=== PATIENT | male | born 1990 | race Caucasian/White ===

== ENCOUNTER 2020-07-02 03:10 | Emergency (ER) | payer SELFPAY ==
[2020-07-02 03:57] LABS: Absolute Lymphocytes (CBC) 2.6 K/uL (0.7-4.9); Basophils % 0.6 % (0-1.3); Hematocrit 40.9 % (39.6-49.0); Lymphocytes % 24.4 % (15.3-44.8); MPV 8.9 fL (7.6-11.3); RBC Red Blood Cell Count 4.77 M/uL (4.33-5.43)
[2020-07-02] MEDS ORDERED: ONDANSETRON 4 MG/2 ML VIAL ONE (04:16)
[2020-07-02] MEDS ORDERED: NA CHLORIDE 0.9% 1,000 ML ONE (04:16)
[2020-07-02] MEDS ORDERED: FAMOTIDINE 20 MG/2 ML VIAL IV ONE (04:16)
[2020-07-02] MEDS ORDERED: MORPHINE 4 MG/ML SYR ONE ×2 (04:16→04:43)
[2020-07-02 04:19] LABS: ALT/SGPT 28 U/L (12-78); AST/SGOT 23 U/L (15-37); Albumin 3.9 g/dL (3.4-5.0); Alkaline Phosphatase 87 U/L (45-117); BUN Blood Urea Nitrogen 17 mg/dL (7-18); Bicarbonate 26 mmol/L (21-32); Bilirubin Direct < 0.1 mg/dL (0-0.2); Bilirubin Total 0.4 mg/dL (0.2-1.0); Glucose Level 115 mg/dL (74-106); Lipase 100 U/L (73-393); Potassium 3.6 mmol/L (3.5-5.1); Protein, Total 8.2 g/dL (6.4-8.2); Sodium Level 138 mmol/L (136-145)
[2020-07-02 06:10] LABS: Urine Blood TRACE (NEG); Urine Glucose NEGATIVE (NEG); Urine Protein NEGATIVE (NEG); Urine pH 5.5 (5.0-7.0)
--- NOTE | 2020-07-02 07:01 | ER ---
Nurse's Notes [facility] Name: Yovani Birch Age: 29 yrs Sex: Male : 1990 Arrival Date: 07/02/2020 Time: 03:11 Bed 8 Private MD: Diagnosis: Upper abdominal pain, unspecified Presentation: 07/02 03:34 Chief complaint: Patient states: Severe RUQ abdominal pain that woke patient from sleep lp1 a couple of hours ago; Denies N/V, diarrhea, fever. Coronavirus screen: Client denies travel out of the [place] in the last 14 days. At this time, the client does not indicate any symptoms associated with coronavirus-19. Ebola Screen: No symptoms or risks identified at this time. Initial Sepsis Screen: Does the patient meet any 2 criteria? No. Patient's initial sepsis screen is negative. Does the patient have a suspected source of infection? No. Patient's initial sepsis screen is negative. Risk Assessment: Do you want to hurt yourself or someone else? Patient reports no desire to harm self or others. Onset of symptoms was July 02, 2020. 03:34 Method Of Arrival: Wheelchair lp1 03:34 Acuity: CORBIN 3 lp1 Historical: - Allergies: 03:35 No Known Allergies; lp1 - Home Meds: 03:35 None [Active]; lp1 - PMHx: 03:35 None; lp1 - PSHx: 03:35 None; lp1 - Immunization history:: Adult Immunizations up to date. - Social history:: Smoking status: Patient reports the use of cigarette tobacco products, denies chronic smoking, but will smoke occasionally. Screenin:36 Abuse screen: Denies threats or abuse. Denies injuries from another. Nutritional lp1 screening: No deficits noted. Tuberculosis screening: No symptoms or risk factors identified. Fall Risk None identified. Assessment: 04:07 General: Appears uncomfortable, ill, Behavior is calm, cooperative. Pain: Complains of rv pain in right upper quadrant and left upper quadrant. Neuro: Level of Consciousness is awake, alert, obeys commands, Oriented to person, place, time, situation. Cardiovascular: Patient's skin is warm and dry. Respiratory: Airway is patent Respiratory effort is even, unlabored. GI: Bowel sounds present X 4 quads. Abd is soft X 4 quads. Derm: Skin is intact. 05:55 Reassessment: Patient and/or family updated on plan of care and expected duration. Pain ea level reassessed. Patient is alert, oriented x 3, equal unlabored respirations, skin warm/dry/pink. Patient states feeling better. 07:26 Reassessment: Patient appears in no apparent distress at this time. Patient and/or jd3 family updated on plan of care and expected duration. Pain level reassessed. Patient is alert, oriented x 3, equal unlabored respirations, skin warm/dry/pink. Patient states feeling better. Vital Signs: 03:34 BP 164 / 71; Pulse 73; Resp 20; Temp 98(TE); Pulse Ox 100% on R/A; Weight 136.08 kg lp1 (R); Height 5 ft. 9 in. (175.26 cm); Pain 10/10; 05:55 BP 139 / 85; Pulse 78; Resp 19; Pulse Ox 99% ; ea 06:14 Pain 0/10; rv 03:34 Body Mass Index 44.30 (136.08 kg, 175.26 cm) lp1 ED Course: 03:11 Patient arrived in ED. am2 03:35 Triage completed. lp1 03:35 Arm band placed on. lp1 03:42 Joon Pedroza, JASIEL is Primary Nurse. rv 03:43 Kristian Cabrera MD is Attending Physician. 7 03:47 Patient has correct armband on for positive identification. Placed in gown. Bed in low ea position. Call light in reach. Side rails up X 1. Pulse ox on. NIBP on. 03:49 Inserted saline lock: 20 gauge in right antecubital area, using aseptic technique. rv Blood collected. 03:49 Initial lab(s) drawn, by me, sent to lab. rv 05:58 CT Abd/Pelvis - IV Contrast Only In Process Unspecified. EDMS 07:25 No provider procedures requiring assistance completed. IV discontinued, intact, jd3 bleeding controlled, No redness/swelling at site. Pressure dressing applied. Administered Medications: 04:08 Drug: morphine 4 mg {Note: rass 0.} Route: IVP; Site: right antecubital; rv 06:14 Follow up: Response: No adverse reaction; RASS: Alert and Calm (0) rv 04:08 Drug: Zofran (Ondansetron) 4 mg Route: IVP; Site: right antecubital; rv 06:14 Follow up: Response: No adverse reaction rv 04:08 Drug: Pepcid 20 mg Route: IVP; Site: right antecubital; rv 06:14 Follow up: Response: No adverse reaction; RASS: Alert and Calm (0) rv 04:08 Drug: NS 0.9% 1000 ml Route: IV; Rate: 1000 ml; Site: right antecubital; rv 06:14 Follow up: IV Status: Completed infusion; IV Intake: 1000ml rv 04:32 Drug: morphine 4 mg Route: IVP; Site: right antecubital; ea 06:14 Follow up: Pain 0/10 Adult; Response: No adverse reaction; Marked relief of symptoms; rv Pain is decreased; RASS: Alert and Calm (0) Intake: 06:14 IV: 1000ml; Total: 1000ml. rv Outcome: 07:01 Discharge ordered by MD. oconnor 07:26 Discharged to home ambulatory, with family. jd3 07:26 Condition: stable 07:26 Discharge instructions given to patient, family, Instructed on discharge instructions, follow up and referral plans. medication usage, Demonstrated understanding of instructions, follow-up care, medications, Prescriptions given X 2. 07:26 Patient left the ED. jd3 Signatures: Dispatcher [employer] EDMS Melissa Knutson RN RN lp1 Mara Elliott Elena, RN RN ea Davies, Jonathon, RN RN jd3 Joon Pedroza RN RN rv Holmes, Maurice, MD MD mh7
--- NOTE | 2020-07-02 07:02 | EDPHYS ---
Physician Documentation [facility] Name: Yovani Birch Age: 29 yrs Sex: Male : 1990 Arrival Date: 07/02/2020 Time: 03:11 Bed 8 Private MD: ED Physician Kristian Cabrera HPI: 07/02 06:56 This 29 yrs old Male presents to ER via Wheelchair with complaints of mh7 Abdominal Pain. 06:56 The patient presents with abdominal pain in the upper abdomen. Onset: The mh7 symptoms/episode began/occurred this morning. The symptoms do not radiate. 06:57 Associated signs and symptoms: Pertinent negatives: nausea, vomiting, and diarrhea, mh7 anorexia, blood in stools, chest pain, constipation, diarrhea, dysuria, fever, headache, hematuria, nausea, palpitations, shortness of breath, testicular pain, vomiting, vomiting blood. The symptoms are described as intermittent, vague, waxing/waning. Modifying factors: The symptoms are alleviated by nothing, the symptoms are aggravated by nothing. Severity of pain: At its worst the pain was moderate today, in the emergency department the pain is unchanged. Historical: - Allergies: 03:35 No Known Allergies; lp1 - Home Meds: 03:35 None [Active]; lp1 - PMHx: 03:35 None; lp1 - PSHx: 03:35 None; lp1 - Immunization history:: Adult Immunizations up to date. - Social history:: Smoking status: Patient reports the use of cigarette tobacco products, denies chronic smoking, but will smoke occasionally. ROS: 06:57 Constitutional: Negative for fever, chills, and weight loss, Eyes: Negative for injury, mh7 pain, redness, and discharge, ENT: Negative for injury, pain, and discharge, Neck: Negative for injury, pain, and swelling, Cardiovascular: Negative for chest pain, palpitations, and edema, Respiratory: Negative for shortness of breath, cough, wheezing, and pleuritic chest pain, Back: Negative for injury and pain, : Negative for injury, bleeding, discharge, and swelling, MS/Extremity: Negative for injury and deformity, Skin: Negative for injury, rash, and discoloration, Neuro: Negative for headache, weakness, numbness, tingling, and seizure, Psych: Negative for depression, anxiety, suicide ideation, homicidal ideation, and hallucinations, Allergy/Immunology: Negative for hives, rash, and allergies, Endocrine: Negative for neck swelling, polydipsia, polyuria, polyphagia, and marked weight changes, Hematologic/Lymphatic: Negative for swollen nodes, abnormal bleeding, and unusual bruising. Exam: 06:57 Head/Face: Normocephalic, atraumatic. Eyes: Pupils equal round and reactive to light, mh7 extra-ocular motions intact. Lids and lashes normal. Conjunctiva and sclera are non-icteric and not injected. Cornea within normal limits. Periorbital areas with no swelling, redness, or edema. Neck: Trachea midline, no thyromegaly or masses palpated, and no cervical lymphadenopathy. Supple, full range of motion without nuchal rigidity, or vertebral point tenderness. No Meningismus. Chest/axilla: Normal chest wall appearance and motion. Nontender with no deformity. No lesions are appreciated. Cardiovascular: Regular rate and rhythm with a normal S1 and S2. No gallops, murmurs, or rubs. Normal PMI, no JVD. No pulse deficits. Respiratory: Lungs have equal breath sounds bilaterally, clear to auscultation and percussion. No rales, rhonchi or wheezes noted. No increased work of breathing, no retractions or nasal flaring. 06:57 Back: No spinal tenderness. No costovertebral tenderness. Full range of motion. Skin: Warm, dry with normal turgor. Normal color with no rashes, no lesions, and no evidence of cellulitis. MS/ Extremity: Pulses equal, no cyanosis. Neurovascular intact. Full, normal range of motion. Neuro: Awake and alert, GCS 15, oriented to person, place, time, and situation. Cranial nerves II-XII grossly intact. Motor strength 5/5 in all extremities. Sensory grossly intact. Cerebellar exam normal. Normal gait. Psych: Awake, alert, with orientation to person, place and time. Behavior, mood, and affect are within normal limits. 06:57 Constitutional: The patient appears in no acute distress, alert, awake, uncomfortable. 06:57 Abdomen/GI: Inspection: obese Bowel sounds: normal, Palpation: moderate abdominal tenderness, in the epigastric area, right upper quadrant and left upper quadrant, Rectal exam: the exam is deferred, because of patient request, Indicators: McBurney's point is not tender, Linares's sign is negative, Rovsing's sign is negative, Obturator sign is negative, Psoas sign is negative, Liver: no appreciated palpable abnormalities, Hernia: not appreciated. Vital Signs: 03:34 BP 164 / 71; Pulse 73; Resp 20; Temp 98(TE); Pulse Ox 100% on R/A; Weight 136.08 kg lp1 (R); Height 5 ft. 9 in. (175.26 cm); Pain 10/10; 05:55 BP 139 / 85; Pulse 78; Resp 19; Pulse Ox 99% ; ea 06:14 Pain 0/10; rv 03:34 Body Mass Index 44.30 (136.08 kg, 175.26 cm) lp1 MDM: 06:57 Differential diagnosis: appendicitis, bowel obstruction, cholecystitis, Cholelithiasis, mh7 diverticulitis, gastritis, gastroesophageal reflux disease, non-specific abd pain, pancreatitis, Peptic Ulcer Disease. Data reviewed: vital signs, nurses notes, lab test result(s), CBC, electrolytes, urinalysis, radiologic studies, CT scan. Data interpreted: Pulse oximetry: on room air is 99 %. Interpretation: normal. Counseling: I had a detailed discussion with the patient and/or guardian regarding: the historical points, exam findings, and any diagnostic results supporting the discharge/admit diagnosis, the presence of at least one elevated blood pressure reading (>120/80) during this emergency department visit, lab results, radiology results, the need for outpatient follow up, to return to the emergency department if symptoms worsen or persist or if there are any questions or concerns that arise at home. Response to treatment: the patient's symptoms have resolved after treatment, the patient's blood pressure is in an acceptable range, mental status has returned to baseline, the patient no longer shows bradycardia, the patient is not short of breath, the patient is not tachycardic, the patient's pain is gone, the patient's temperature has normalized. 07:01 Patient medically screened. [facility] 07/02 03:47 Order name: Basic Metabolic Panel; Complete Time: 04:26 07/02 03:47 Order name: CBC with Diff; Complete Time: 04:07/02 03:47 Order name: Hepatic Function; Complete Time: 04:07/02 03:47 Order name: Lipase; Complete Time: 04:26 ea 07/02 05:03 Order name: CT Abd/Pelvis - IV Contrast Only [facility] 07/02 06:00 Order name: Urine Dipstick--Ancillary (enter results); Complete Time: 06:14 sp 07/02 03:47 Order name: IV Saline Lock; Complete Time: 04:09 ea 07/02 03:47 Order name: Labs collected and sent; Complete Time: 04: ea 07/02 03:55 Order name: Urine Dipstick-Ancillary (obtain specimen); Complete Time: 06:14 [facility] Administered Medications: 04:08 Drug: morphine 4 mg {Note: rass 0.} Route: IVP; Site: right antecubital; rv 06:14 Follow up: Response: No adverse reaction; RASS: Alert and Calm (0) rv 04:08 Drug: Zofran (Ondansetron) 4 mg Route: IVP; Site: right antecubital; rv 06:14 Follow up: Response: No adverse reaction rv 04:08 Drug: Pepcid 20 mg Route: IVP; Site: right antecubital; rv 06:14 Follow up: Response: No adverse reaction; RASS: Alert and Calm (0) rv 04:08 Drug: NS 0.9% 1000 ml Route: IV; Rate: 1000 ml; Site: right antecubital; rv 06:14 Follow up: IV Status: Completed infusion; IV Intake: 1000ml rv 04:32 Drug: morphine 4 mg Route: IVP; Site: right antecubital; ea 06:14 Follow up: Pain 0/10 Adult; Response: No adverse reaction; Marked relief of symptoms; rv Pain is decreased; RASS: Alert and Calm (0) Disposition: 07/02/20 07:01 Discharged to Home. Impression: Upper abdominal pain, unspecified. - Condition is Stable. - Discharge Instructions: Abdominal Pain, Adult, [id number]. - Prescriptions for Bentyl 20 mg Oral Tablet - take 1 tablet by ORAL route every 6 hours As needed; 20 tablet. Pepcid 20 mg Oral Tablet - take 1 tablet by ORAL route every 12 hours for 5 days; 10 tablet. - Medication Reconciliation Form, Thank You Letter, Antibiotic Education, Prescription Opioid Use form. - Follow up: Private Physician; When: 1 - 2 days; Reason: If symptoms return, Worsening of condition, Recheck today's complaints, Continuance of care, Re-evaluation by your physician. - Problem is new. - Symptoms have improved. Signatures: Dispatcher [employer] EDMS Melissa Knutson, RN RN lp1 Christal Deng RN RN Scott Leonardo, RN RN jd3 Joon Pedroza RN RN Kristian Calvillo MD MD mh7 Corrections: (The following items were deleted from the chart) 07:26 07:01 07/02/2020 07:01 Discharged to Home. Impression: Upper abdominal pain, jd3 unspecified. Condition is Stable. Forms are Medication Reconciliation Form, Thank You Letter, Antibiotic Education, Prescription Opioid Use. Follow up: Private Physician; When: 1 - 2 days; Reason: If symptoms return, Worsening of condition, Recheck today's complaints, Continuance of care, Re-evaluation by your physician. Problem is new. Symptoms have improved. mh7
[2020-07-02 07:44] VITALS: TEMP 98
[2020-07-02 07:45] VITALS: BP 139/85; O2SAT 99
--- NOTE | 2020-07-02 18:27 | RAD REPORT ---
EXAM DESCRIPTION: CT ABDOMEN PELVIS WITH IV CONTRAST on 07/02/2020 5:03 AM CREDIT RISK MODELER CLINICAL HISTORY: ABD PAIN COMPARISON: None. TECHNIQUE: This exam was performed according to our departmental dose-optimization program, which in cludes automated exposure control, adjustment of the mA and/or kV according to patient size and/or us e of iterative reconstruction technique. FINDINGS: There are two small left lower lobe pulmonary nodules measuring up to 4 mm. Abdomen: The liver is normal in appearance. There is no biliary dilatation. Gallbladder is normal in appearance. The pancreas and spleen are normal in appearance. The adrenal glands and kidneys are unre markable. Abdominal aorta is normal in course and caliber without aneurysm. There is no free air. There is no r etroperitoneal adenopathy. Pelvis: There is no bowel obstruction. Urinary bladder is unremarkable. There is no free fluid. Appen pilar is normal. Skeleton: There are no acute osseous findings. No suspicious bony lesions. IMPRESSION: No acute inflammatory process. Electronically signed by: Cabrera Benoit MD 07/02/2020 6:12 AM CREDIT RISK MODELER Due to temporary technical issues with the PACS/Fluency reporting system, reports are being signed by the in house radiologists without review as a courtesy to insure prompt reporting. The interpreting radiologist is fully responsible for the content of the report.
== END 2020-07-02 07:26 | disposition home or self-care (01) ==
LOC: ER 03:10
DX: R10.10 Upper abdominal pain, unspecified (principal); F17.210 Nicotine dependence, cigarettes, uncomplicated
CPT/HCPCS: 36415; 74177; 80048; 80076; 81003; 83690; 85025; 96361; 96374; 96375; 99284; J2405; J7030; Q9967